=== PATIENT | female | born 1995 | race African-American/Black ===

== ENCOUNTER 2017-07-08 22:33 | Emergency (ER) | payer MEDICAID ==
[~2017-07-08] VITALS: Ht 165.1 cm; Wt 56.0 kg
[2017-07-09] MEDS ORDERED: BACITRACIN ZINC OINT UDPKT TOP ONE (00:45)
[2017-07-09] MEDS ORDERED: LIDOCAINE HCL 4% CREAM 76GM TUBE TP ONE (00:45)
[2017-07-09] MEDS ORDERED: ACETAMINOPHEN WITH CODEINE 300/30MG TABLET PO ONE (00:45)
[2017-07-09 02:45] VITALS: BP 126/64
== END 2017-07-09 02:55 | disposition home or self-care (01) ==
LOC: ER 22:45
DX: R07.89 Other chest pain (principal); M79.632 Pain in left forearm; V43.52XA Car driver injured in collision with other type car in traffic accident, initial encounter; W22.11XA Striking against or struck by driver side automobile airbag, initial encounter; Y92.410 Unspecified street and highway as the place of occurrence of the external cause; Y93.89 Activity, other specified; Y99.8 Other external cause status
CPT/HCPCS: 71045; 81025; 99284